=== PATIENT | male | born 1960 | race Caucasian/White ===

== ENCOUNTER 2017-01-05 04:44 | Emergency (ER) | payer OTHER ==
[~2017-01-05] VITALS: Ht 182.9 cm; Wt 109.1 kg
[2017-01-05 05:04] LABS: HEMATOCRIT 43.1 % (38.0-50.0); MCH 31.8 PG (29.0-34.0); MCHC 34.6 G/DL (30.0-36.0); MCV 92.1 FL (86-99); MEAN PLAT.VOLUME 9.6 uM^3 (9.0-12.4); PLATELET COUNT 143 K/uL (156-360); RED BLOOD COUNT 4.68 M/uL (4.00-5.50); WHITE BLOOD COUNT 8.9 K/uL (4.1-10.2)
[2017-01-05 05:12] LABS: CHLORIDE 97 mEq/L (99-109); POTASSIUM 3.3 mEq/L (3.7-5.4); SODIUM 135 mEq/L (136-147)
[2017-01-05 05:14] LABS: GLUCOSE 227 mg/dL (70-99)
[2017-01-05 05:15] LABS: ANION GAP 18 MEQ/L (2-14)
[2017-01-05 05:17] LABS: SERUM ETHYL ALCOHOL < 10 mg/dL
[2017-01-05 05:18] LABS: GFR ESTIMATE (CALCULATED) > 59 mL/min/
[2017-01-05 05:19] LABS: UREA NITROGEN (BUN) 11 mg/dL (9-23)
[2017-01-05] MEDS ORDERED: LISINOPRIL2.5 MG PO (05:40)
[2017-01-05] MEDS ORDERED: AMLODIPINE BES2.5 MG PO (05:47)
[2017-01-05] MEDS ORDERED: GLUCOTROL5 MG PO (05:48)
[2017-01-05] MEDS ORDERED: GLUCOPHAGE1000 MG PO (05:48)
[2017-01-05] MEDS ORDERED: LIPITOR10 MG PO (05:49)
[2017-01-05] MEDS ORDERED: MICROZIDE12.5 M1 PO (05:49)
[2017-01-05] MEDS ORDERED: LIBRIUM25 MG PO (06:12)
[2017-01-05 06:43] LABS: ADD MIUA? YES; BILIRUBIN NEGATIVE; BLOOD MODERATE; COLOR YELLOW ((YELLOW)); GLUCOSE (STRIP) >=500; KETONES 20; LEUKOCYTES NEGATIVE; NITRITE NEGATIVE; PROTEIN (STRIP) >=500; SPECIFIC GRAVITY 1.017 (1.000-1.030)
[2017-01-05 06:47] VITALS: BP 167/85
[2017-01-05 06:53] LABS: BACTERIA RARE /HPF; EPITHELIAL CELLS RARE /HPF; MUCUS NONE SEEN /LPF; UCUL ADDED? NO; WHITE BLOOD CELLS RARE /HPF (0-5)
[2017-01-05 06:54] LABS: AMPHETAMINE NEGATIVE (500 ng/mL); BARBITURATES NEGATIVE (200 ng/mL); BENZODIAZEPINES NEGATIVE (150 ng/mL); CASTS PRESENT /LPF; COCAINE NEGATIVE (150 ng/mL); CRYSTALS NONE SEEN; HYALINE CASTS RARE /LPF; INTERNAL CONTROLS VALID? YES; METHADONE NEGATIVE (200 ng/mL); METHAMPHETAMINE NEGATIVE (500 ng/mL); OPIATES (MORPHINE) NEGATIVE (100 ng/mL); OXYCODONE NEGATIVE (100 ng/mL); PHENCYCLIDINE NEGATIVE (25 ng/mL); PROPOXYPHENE NEGATIVE (300 ng/mL); THC CANNABINOIDS NEGATIVE (50 ng/mL); TRICYCLIC ANTIDEPRESSANTS NEGATIVE (300 ng/mL)
== END 2017-01-05 06:48 | disposition home or self-care (01) ==
LOC: EME 04:44
PROVIDERS: Emergency Medicine
DX: R56.9 Unspecified convulsions (principal); F10.10 Alcohol abuse, uncomplicated; Y90.0 Blood alcohol level of less than 20 mg/100 ml; E11.9 Type 2 diabetes mellitus without complications; Z79.84 Long term (current) use of oral hypoglycemic drugs; E78.5 Hyperlipidemia, unspecified; I10 Essential (primary) hypertension; F41.9 Anxiety disorder, unspecified; F17.200 Nicotine dependence, unspecified, uncomplicated
CPT/HCPCS: 70450; 80048; 81003; 85027; 93005; 99281; 99285; G0480; J7030